=== PATIENT | male | born 1995 | race Caucasian/White ===

== ENCOUNTER 2019-09-07 07:14 | Day surgery (SDC) | payer OTHER ==
[2019-09-03 14:29] VITALS: BMI 18.1
[2019-09-07] MEDS ORDERED: LIDOCAINE HCL/PF 2% SDV 5ML VIAL ONE (07:22)
[2019-09-07] MEDS ORDERED: PROPOFOL 20 ML ONE ×6 (07:22→07:42)
[2019-09-07 07:37] VITALS: TEMP 98.2
[2019-09-07 08:56] VITALS: BP 110/56; PULSE 76
--- NOTE | 2019-09-09 18:23 | PATH ---
Surgical Pathology Report Patient Name: KATLYN REEDER [facility]. Rec. #: [id number] /Age/Gender: 1995 (Age: 24) / M Account: [id number] Location: [facility] Taken: 09/07/2019 Received: 09/07/2019 Reported: 09/09/2019 Physicians: DOCTOR MARY Schmitz Specimen(s) Received A: RANDOM ASCENDING COLON B: RANDOM TRANSVERSE COLON C: RANDOM DESCENDING COLON Clinical History Diarrhea Postoperative diagnosis: Rule out microscopic colitis, hemorrhoids Final Diagnosis A. RANDOM ASCENDING COLON, BIOPSY: COLONIC MUCOSA WITH REACTIVE LYMPHOID FOLLICLES. NO HISTOLOGIC EVIDENCE OF ACTIVE INFLAMMATION. B. RANDOM TRANSVERSE COLON, BIOPSY: COLONIC MUCOSA WITH NO SIGNIFICANT PATHOLOGIC CHANGE. NO HISTOLOGIC EVIDENCE OF ACTIVE INFLAMMATION. C. RANDOM DESCENDING COLON, BIOPSY: COLONIC MUCOSA WITH NO SIGNIFICANT PATHOLOGIC CHANGE. NO HISTOLOGIC EVIDENCE OF ACTIVE INFLAMMATION. Electronically Signed Lou Cristina M.D. Gross Description A. Received in formalin, labeled "biopsy random ascending colon" are 2 raya, irregular portions of soft tissue measuring 0.2 and 0.6 cm. in greatest dimension. The specimens are submitted in toto in one cassette. B. Received in formalin, labeled "biopsy of random transverse colon" are 3 raya, irregular portions of soft tissue ranging from 0.2-0.3 cm. in greatest dimension. The specimens are submitted in toto in one cassette. C. Received in formalin, labeled "biopsy random descending" is a raya, irregular portion of soft tissue measuring 0.4 cm. in greatest dimension. The specimen is submitted in toto in one cassette. 09/08/2019 [facility]09/08/2019
== END 2019-09-07 09:07 | disposition home or self-care (01) ==
LOC: FASU-ENDO 07:14
PROVIDERS: ATTEND Internal Medicine Gastroenterology
PROC: 0DBL8ZX Excision of Transverse Colon, Via Natural or Artificial Opening Endoscopic, Diagnostic (ICD-10-PCS; 2019-09-07)
PROC: 0DBM8ZX Excision of Descending Colon, Via Natural or Artificial Opening Endoscopic, Diagnostic (ICD-10-PCS; 2019-09-07)
PROC: 0DBK8ZX Excision of Ascending Colon, Via Natural or Artificial Opening Endoscopic, Diagnostic (ICD-10-PCS; principal; 2019-09-07 07:52)
DX: R19.7 Diarrhea, unspecified (principal); K64.9 Unspecified hemorrhoids